=== PATIENT | male | born 1960 | race African-American/Black ===

== ENCOUNTER 2020-05-04 10:54 | Emergency (ER) | payer OTHER ==
[~2020-05-04] VITALS: Ht 172.7 cm; Wt 77.0 kg
[2020-05-04 11:26] LABS: BASOPHILS % 0.9 % (0.0-2.0); EOSINOPHILS % 4.7 % (0.0-5.0); HEMATOCRIT. 42.3 % (42.0-52.0); HEMOGLOBIN. 14.2 g/dL (14.0-18.0); LYMPHOCYTES % 19.4 % (20.0-50.0); MEAN CORPUSCULAR HEMOGLOBIN 31.2 pg (28.0-32.0); MEAN CORPUSCULAR VOLUME 93.3 fL (80.0-94.0); MEAN PLATELET VOLUME 8.3 fl (7.4-10.4); MONOCYTES % 9.5 % (2.0-8.0); NEUTROPHILS % 65.5 % (40.0-76.0); PLATELET 200 x1000/uL (130-400); RED BLOOD CELL COUNT 4.54 mill/uL (4.7-6.1); RED CELL DISTRIBUTION WIDTH 14.1 % (11.6-14.6)
[2020-05-04 11:32] LABS: CHLORIDE 108 mEq/L (98-107)
[2020-05-04] MEDS ORDERED: NAPR-681 MT (12:07)
[2020-05-04 12:15] VITALS: BP 138/86
== END 2020-05-04 12:27 | disposition home or self-care (01) ==
LOC: ER 11:24
DX: R42 Dizziness and giddiness (principal); R11.0 Nausea; I10 Essential (primary) hypertension
CPT/HCPCS: 36415; 71045; 80053; 82962; 83880; 84484; 85025; 93005; 99285

== ENCOUNTER 2023-01-11 09:15 | Emergency (ER) | payer MEDICAID, OTHER ==
[~2023-01-11] VITALS: Ht 177.8 cm; Wt 66.0 kg
[~2023-01-11 09:15] MED LIST: NAPR-681 MT
[2023-01-11 09:29] VITALS: TEMP 98; O2SAT 99
[2023-01-11] MEDS ORDERED: SODIUM CHLORIDE 0.9% 1,320 ML IV ONE (09:45)
[2023-01-11 11:45] VITALS: BP 160/128; PULSE 116; RESP 18
[2023-01-11] MEDS ORDERED: IBUPROFEN 600MG TABLET PO NR (11:45)
== END 2023-01-11 12:01 | disposition home or self-care (01) ==
LOC: ER 09:15
DX: M25.562 Pain in left knee (principal); I10 Essential (primary) hypertension; W01.0XXA Fall on same level from slipping, tripping and stumbling without subsequent striking against object, initial encounter; Y93.89 Activity, other specified; Y92.89 Other specified places as the place of occurrence of the external cause; Y99.8 Other external cause status
CPT/HCPCS: 99283; 73562; J7030